=== PATIENT | female | born 1990 | race Two or more races ===

== ENCOUNTER 2018-09-18 21:04 | Emergency (ER) | payer OTHER ==
[~2018-09-18] VITALS: Ht 167.6 cm; Wt 80.7 kg
[2018-09-18] MEDS ORDERED: NKM (21:13)
--- NOTE | 2018-09-18 21:26 | NUR ---
ED Nurse Note: pt walked in c/o right eye irritation and redness started today. noted redness in sclera but vision intact, will cont monitor. no discharge nor sx infection at this time.
[2018-09-18 21:27] VITALS: BP 136/81
[2018-09-18] MEDS ORDERED: ERYTHROMYCIN3.5 GM RIGHT EYE (21:34)
--- NOTE | 2018-09-18 21:34 | Emergency Room Report ---
History of Present Illness General Chief Complaint: Eye Problems Source: Patient Present Illness HPI 28-year-old female wears contacts presents with right eye irritation x1 day, no aggravating or alleviating factors severity is mild, no nausea no vomiting, no fever no chills, no change in vision, patient presents for evaluation Allergies: Coded Allergies: No Known Allergies (Unverified , 09/18/18) Patient History Past Medical History: see triage record Last Menstrual Period: currently on it Now: No : 3 Para: 3 Reviewed Nursing Documentation: PMH: Agreed; PSxH: Agreed Nursing Documentation-PMH Past Medical History: No Stated History Review of Systems All Other Systems: negative except mentioned in HPI Physical Exam Vital Signs Date Time Temp Pulse Resp B/P (MAP) Pulse Ox O2 Delivery O2 Flow Rate FiO2 09/18/18 21:10 98.2 58 18 136/81 (99) 97 Room Air Sp02 EP Interpretation: reviewed, normal General Appearance: well appearing, no apparent distress, alert Head: normocephalic, atraumatic Eyes: right eye other - Redness of the sclera, no pus, no discharge; bilateral eye PERRL, bilateral eye EOMI ENT: uvula midline, moist mucus membranes Neck: supple, thyroid normal, supple/symm/no masses Respiratory: lungs clear, no respiratory distress, no retraction, no accessory muscle use Cardiovascular #1: normal peripheral pulses, regular rate, rhythm, no edema, no gallop, no murmur Gastrointestinal: non tender, soft, no guarding, no rebound Musculoskeletal: normal inspection Neurologic: alert, oriented x3 Psychiatric: mood/affect normal Skin: no rash, warm/dry Medical Decision Making Diagnostic Impression: Primary Impression: Conjunctivitis, right eye Last Vital Signs Date Time Temp Pulse Resp B/P (MAP) Pulse Ox O2 Delivery O2 Flow Rate FiO2 09/18/18 21:27 98.2 58 18 136/81 97 Room Air Disposition: HOME, SELF-CARE Condition: Stable Scripts Erythromycin Base (ERYTHROMYCIN*) 3.5 Gm Oint...g. 1 APPLIC RIGHT EYE Q6H for 7 Days, #3.5 GM 0 Refills Prov: Joshua Pierre MD 09/18/18 Referrals: [facility] Patient Instructions: Bacterial Conjunctivitis, [id number], Bacterial Conjunctivitis Additional Instructions: The patient was provided with discharge instructions, notified to follow-up with a primary care doctor and or specialist in the next 24-48 hours, and to return to the ED if they have worsening of their symptoms. Please note that this report is being documented using [employer] technology. This can lead to erroneous entry secondary to incorrect interpretation by the dictating instrument. Follow-up with an signal constructor in 24-48 hours Joshua Pierre MD Sep 18, 2018 21:34
--- NOTE | 2018-09-18 21:41 | NUR ---
ED Nurse Note: pt cleared to be d/c per ERMD, pt discharge and aftercare instruction provided w/ prescription, pt education done via discussion and handout, pt advised to follow up with opthamologist or return to ed if changes in condition, vss, ambulatory w/ steady gait, left w/ all belongings accompanied by spouse.
[2018-09-18 21:42] VITALS: BP 127/56
== END 2018-09-18 21:41 | disposition home or self-care (01) ==
LOC: EMR 21:23
DX: H10.9 Unspecified conjunctivitis (principal)
CPT/HCPCS: 99282

== ENCOUNTER 2019-01-20 12:15 | Emergency (ER) | payer OTHER ==
[~2019-01-20] VITALS: Ht 167.6 cm; Wt 76.7 kg
[~2019-01-20 12:15] MED LIST: ERYTHROMYCIN3.5 GM RIGHT EYE; NKM
[2019-01-20 12:30] VITALS: BP 124/83
--- NOTE | 2019-01-20 12:40 | NUR ---
ED Nurse Note:pt. came with right eye redness and pain for 2 days, visual acuity was done
[2019-01-20] MEDS ORDERED: Fluorescein Strips RIGHT EYE ONE ×2 (12:45→13:30)
[2019-01-20] MEDS ORDERED: Tetracaine 0.5% Opth 4ml Soln RIGHT EYE ONE (12:45)
[2019-01-20] MEDS ORDERED: Morgan Lens TOPIC ONE (12:45)
--- NOTE | 2019-01-20 13:15 | NUR ---
ED Nurse Note: RN removed marybeth lense from right eye. Patient tolerated the procedure with minimal discomfort. LUIZA Raya bedside.
--- NOTE | 2019-01-20 13:21 | Emergency Room Report ---
History of Present Illness General Chief Complaint: Eye Problems Source: Patient Present Illness HPI 29-year-old female with no significant past medical history here complaining of burning sensation irritation of her right eye that started today. Patient is wearing acrylic nails and reports that was getting her eye contact out of her eyes that she felt like she scratched her eye. Denies any discharge from the eye. Complains of blurry vision however denies photophobia and headache. Has not taken medication for symptom relief. Patient does not recall whether she took the entire contact lens out of her eye. Denies eye trauma, chemical exposure to the eye. Allergies: Coded Allergies: No Known Allergies (Unverified , 09/18/18) Patient History Past Medical History: see triage record Past Surgical History: unable to obtain Pertinent Family History: none Now: No Immunizations: UTD Reviewed Nursing Documentation: PMH: Agreed; PSxH: Agreed Nursing Documentation-PMH Past Medical History: No Stated History Review of Systems All Other Systems: negative except mentioned in HPI Physical Exam Vital Signs Date Time Temp Pulse Resp B/P (MAP) Pulse Ox O2 Delivery O2 Flow Rate FiO2 01/20/19 12:24 98.2 89 17 124/83 (97) 99 Room Air Sp02 EP Interpretation: reviewed, normal General Appearance: no apparent distress, alert, GCS 15, non-toxic Head: normocephalic, atraumatic Eyes: right eye other - Corneal ulcer of the right lower is noted on Ramirez lamp examination; bilateral eye PERRL ENT: hearing grossly normal, normal pharynx, no angioedema, normal voice Neck: full range of motion, supple, supple/symm/no masses Respiratory: chest non-tender, lungs clear, normal breath sounds, no rhonchi, no respiratory distress, no retraction, no wheezing, speaking full sentences Cardiovascular #1: regular rate, rhythm, no edema, no murmur Gastrointestinal: non tender, soft Rectal: deferred Genitourinary: no CVA tenderness Musculoskeletal: back normal, normal range of motion, gait/station normal, non- tender Neurologic: alert, motor strength/tone normal, oriented x3, sensory intact, responsive, speech normal Psychiatric: normal inspection, judgement/insight normal Skin: no rash Lymphatic: no adenopathy Procedures Eye Procedure Eye Procedure : Consent: Verbal Alcaine Drops Administered: Yes Eye FB Removal: other - corneal ulceration, no visible FB Eye Irrigated w/ Saline (ccs): 1000 Cyclogel 2 Drops Administered: right eye Patient Tolerated: Well Complications: None Medical Decision Making PA Attestation Diagnosis and treatment plans were reviewed and discussed with my supervising physician Dr. Pierre Diagnostic Impression: Primary Impression: Foreign body in eye Additional Impression: Corneal ulcer, right ER Course 29-year-old female with no significant past medical history here complaining of burning sensation irritation of her right eye that started today. Patient is wearing acrylic nails and reports that was getting her eye contact out of her eyes that she felt like she scratched her eye. Denies any discharge from the eye. Complains of blurry vision however denies photophobia and headache. Has not taken medication for symptom relief. Patient does not recall whether she took the entire contact lens out of her eye. Denies eye trauma, chemical exposure to the eye. Ddx considered but are not limited to: bacterial conjunctivitis, allergic conjunctivitis, viral conjunctivitis, periorbital cellulitis, global trauma, corneal ulcer, foreign body in eye Vital signs: are WNL, pt. is afebrile H&PE are most consistent with: Corneal ulcer, foreign body in right eye ORDERS: Ciprofloxacin ophthalmic drops ED INTERVENTIONS: Naveed lens, irrigation of right eye, with planned procedure with tetracaine and fluorescein strip, what appeared to be at first and possible foreign body secondary to tearing of the patient's contact lens seem to be a corneal ulceration due to patient's long nails and injuring herself in the area. DISCHARGE: At this time pt. is stable for d/c to home. Will provide printed patient care instructions, and any necessary prescriptions. Care plan and follow up instructions have been discussed with the patient prior to discharge. Patient to follow-up with metal alloy scientist in 24 to 48 hours, I gave patient contact information of Dr. Kaplan for possible consult. Patient to return to the emergency room if worsening symptoms Last Vital Signs Date Time Temp Pulse Resp B/P (MAP) Pulse Ox O2 Delivery O2 Flow Rate FiO2 01/20/19 12:30 98.2 89 17 124/83 99 Room Air Disposition: HOME, SELF-CARE Condition: Stable Scripts Ciprofloxacin Hcl (CIPROFLOXACIN HCL) 2.5 Ml Drops 2 DROP OP Q6HR for 12 Days, #10 ML 2 drops in right eye q15min x6h then q30min x18h, then q1h x1 day , then q4h x12 days Prov: Elver Arizmendi 01/20/19 Patient Instructions: Corneal Ulcer, Eye Foreign Body, [id number] Additional Instructions: Follow-up with an metal alloy scientist in 24 to 48 hours, use drops as directed, if worsening symptoms return to the emergency room Elver Arizmendi Jan 20, 2019 13:21
[2019-01-20] MEDS ORDERED: CIPROFLOXACIN2.5 ML OP (13:30)
--- NOTE | 2019-01-20 13:40 | NUR ---
ER DISCHARGE NOTE: Patient is cleared to be discharged per ERMD, pt is aox4, on room air, with stable vital signs. pt was given dc and prescription instructions, pt was able to verbalize understanding, pt is able to ambulate with steady gait. pt took all belongings.
[2019-01-20 15:22] VITALS: BP 124/83
== END 2019-01-20 13:35 | disposition home or self-care (01) ==
LOC: EMR 12:52
DX: T15.91XA Foreign body on external eye, part unspecified, right eye, initial encounter (principal); H16.001 Unspecified corneal ulcer, right eye
CPT/HCPCS: 99283

== ENCOUNTER 2019-01-24 12:40 | Emergency (ER) | payer OTHER ==
[~2019-01-24] VITALS: Ht 167.6 cm; Wt 76.7 kg
[~2019-01-24 12:40] MED LIST changes: +CIPROFLOXACIN2.5 ML OP
[2019-01-24 13:19] VITALS: BP 124/73
--- NOTE | 2019-01-24 13:19 | NUR ---
ED Nurse Note: Patient drove to the ED from home. She states she came here on Monday for eye pain and was diagnosed with an "eye ulcer". She states she was given eye drops and has been using them since. The eye pain has been getting better each day, but the pain started getting worse since yesturday when the light shines in her eye. Patient statesn she was told to return if s/s do not improve.
[2019-01-24] MEDS ORDERED: Tetracaine 0.5% Opth 4ml Soln RIGHT EYE ONE (13:30)
[2019-01-24] MEDS ORDERED: Fluorescein Strips RIGHT EYE ONE (13:30)
[2019-01-24] MEDS ORDERED: HYDROcodone/Acetamin 5/325 tab ORAL ONE (14:30)
--- NOTE | 2019-01-24 15:10 | Emergency Room Report ---
History of Present Illness General Chief Complaint: Eye Problems Source: Patient Present Illness HPI 29 YO Female presents to the ED c/o : Right eye pain, redness, scratching sensation and increased tearing x 4 days. She is currently being tx'd with ophtho. Abx. for corneal ulcer dx.'d here in the ED 4 days ago. Pt. reports 10/ 10 in severity pain inner eye and forehead in addition to having severe photophobia. She denies new trauma to the eye. Pt. states she is awaiting technology integration specialist authorization from her PCP. Pt reports Contact lens use, but has not been using since d/c here in ED 4 days ago. She denies URI symptoms or rashes. Allergies: Coded Allergies: No Known Allergies (Unverified , 09/18/18) Patient History Past Medical History: see triage record Past Surgical History: none Pertinent Family History: none Last Menstrual Period: 01/06/2019 Reviewed Nursing Documentation: PMH: Agreed; PSxH: Agreed Nursing Documentation-PMH Past Medical History: No Stated History Review of Systems All Other Systems: negative except mentioned in HPI Physical Exam Vital Signs Date Time Temp Pulse Resp B/P (MAP) Pulse Ox O2 Delivery O2 Flow Rate FiO2 01/24/19 13:10 98.6 73 16 124/73 (90) 99 Room Air Sp02 EP Interpretation: reviewed, normal General Appearance: no apparent distress, alert, GCS 15, non-toxic Head: normocephalic, atraumatic Eyes: right eye fluoroscene uptake - Increased fluorescein uptake in the 8 O' clock position of the Right eye, there is no involvement of the iris or pupil., right eye photophobia - Consensual pain as well only in right eye., right eye visual acuity - 20/50 in affected eye and 20/20 in unaffected eye, right eye Scleral Injection, right eye other - IOP's of 35,20,22; bilateral eye normal inspection, bilateral eye PERRL, bilateral eye EOMI ENT: hearing grossly normal, normal voice Neck: full range of motion Respiratory: lungs clear, normal breath sounds, speaking full sentences Cardiovascular #1: regular rate, rhythm Musculoskeletal: normal range of motion, gait/station normal, non-tender Neurologic: alert, motor strength/tone normal, oriented x3, sensory intact, responsive, speech normal Psychiatric: judgement/insight normal Skin: no rash, normal color, normal inspection Medical Decision Making PA Attestation Dr. Stark Is my supervising Physician whom patient management has been discussed with. Diagnostic Impression: Primary Impression: Pain, eye, right Additional Impression: Uveitis of right eye ER Course 29 YO Female presents to the ED c/o : Right eye pain, redness, scratching sensation and increased tearing x 4 days. She is currently being tx'd with ophtho. Abx. for corneal ulcer dx.'d here in the ED 4 days ago. Pt. reports 10/ 10 in severity pain inner eye and forehead in addition to having severe photophobia. She denies new trauma to the eye. Pt. states she is awaiting technology integration specialist authorization from her PCP. Pt reports Contact lens use, but has not been using since d/c here in ED 4 days ago. She denies URI symptoms or rashes. Ddx considered but are not limited to: corneal abrasion, acute glaucoma, globe rupture, FB, Corneal Ulcer, conjunctivitis. Iridis, uveitis Vital signs: are WNL, pt. is afebrile H&PE are most consistent with: corneal ulcer with possible secondary uveitis. ORDERS: --Tetracaine and Fluorescein Stain of the Right eye: Increased fluorescein uptake in the 8 O'clock position of the Right eye, there is no involvement of the iris or pupil. --No relief with tetracaine -!-Severe Pain with Consensual light testing. -- Ramos Pen pressures: 35, 20,22. --VA: 20/50 affected eye, 20/20 unaffected eye. --Negative Mulugeta sign. ED INTERVENTIONS: --[place] PO OPHTHO CONSULT: Dr. Hercules, pt. to be seen within 24hours, he was given her face sheet via fax. His office will be contacting the pt. Pt. also instructed that she can go to [facility] where Ophtho resources are readily available. DISCHARGE: At this time pt. is stable for d/c to home. Will provide printed patient care instructions, and any necessary prescriptions. Care plan and follow up instructions have been discussed with the patient prior to discharge. . Last Vital Signs Date Time Temp Pulse Resp B/P (MAP) Pulse Ox O2 Delivery O2 Flow Rate FiO2 01/24/19 13:19 98.6 76 16 124/73 99 Room Air Disposition: HOME, SELF-CARE Condition: Stable Physician Consult: Dr. Hercules (Ophthomologist) Scripts Hydrocodone Bit/Acetaminophen 5-325* (NORCO 5-325*) 1 Each Tablet 1 TAB ORAL Q6H PRN for For Pain, #10 TAB 0 Refills Prov: Neha Hnog 01/24/19 Referrals: Dwayne Hercules M.D., MD [facility] Additional Instructions: Take medications as directed. Follow up with a Service Center Coordinator WITHIN 24 HOURS!!!!!! Dr. Hercules's office will be contacting you. Otherwise may go to any Service Center Coordinator of your choice or [facility], even if your symptoms have resolved. Return sooner to ED if new symptoms occur, or current symptoms become worse. - Please note that this Emergency Department Report was dictated using [employer] technology software, occasionally this can lead to erroneous entry secondary to interpretation by the dictation equipment. Neha Hong Jan 24, 2019 15:10
[2019-01-24] MEDS ORDERED: NORCO 5-325 TA1 EACH ORAL (15:18)
--- NOTE | 2019-01-24 15:24 | NUR ---
ED Nurse Note: Patient resting in bed, lights dimmed for comfort.
[2019-01-24 15:29] VITALS: BP 112/75
--- NOTE | 2019-01-24 15:29 | NUR ---
ED Nurse Note: Patient cleared for discharge by ER MD, patient given prescriptions and verbalized understanding regarding discharge instructions.
== END 2019-01-24 15:29 | disposition home or self-care (01) ==
LOC: EMR 13:35
DX: Z01.01 Encounter for examination of eyes and vision with abnormal findings (principal); H20.9 Unspecified iridocyclitis; H57.11 Ocular pain, right eye
CPT/HCPCS: 99283